=== PATIENT | female | born 1965 | race Caucasian/White ===

== ENCOUNTER 2018-07-21 23:05 | Emergency (ER) | payer SELFPAY ==
[2018-07-22] MEDS: AMLODIPINE 10 MG TAB PO (03:56)
[2018-07-22] MEDS: LABETALOL HCL 20MG INJ IV (03:56)
== END 2018-07-22 03:51 | disposition left against medical advice (07) ==
LOC: E/R 23:05
DX: I10 Essential (primary) hypertension (principal); R40.2142 Coma scale, eyes open, spontaneous, at arrival to emergency department; R40.2252 Coma scale, best verbal response, oriented, at arrival to emergency department; R40.2362 Coma scale, best motor response, obeys commands, at arrival to emergency department
CPT/HCPCS: 99283